=== PATIENT | female | born 1955 ===

== ENCOUNTER 2019-12-17 15:59 | Emergency (ER) | payer MEDICAID ==
--- NOTE | 2019-12-17 16:28 | RAD ---
Chest one view HISTORY: Weakness. FINDINGS: No comparison. Cardiac silhouette is unremarkable. Pulmonary vasculature accentuated by sha llow inspiration spinal is midline allowing for slight leftward rotation of the patient. Calcification over the aortic arch. Slight masslike prominence of the right hilum. Possibly projectional. No lobar consolidation or evidence of pneumothorax. IMPRESSION : Subtle prominence of the right hilum. Further evaluation warranted. Please consider upright PA and lateral views of the chest in full inspiration for better characteriza tion. Atherosclerosis.
[2019-12-17] MEDS ORDERED: Nitroglycerin 2% Ointment 1 INCH/1 GM Packet ONE (16:31)
[2019-12-17 16:57] LABS: #Eosinphils 0.1 thou/uL (0.0-0.7); #Lymphocytes 1.8 thou/uL (1.20-3.40); #Monocytes 0.5 thou/uL (0.11-0.59); #Neutrophils 4.4 thou/uL (1.40-6.50); %Basophils 0.3 % (0.0-1.0); %Eosinophils 1.3 % (0.0-10.0); %Monocytes 7.5 % (0.0-10.0); Hemoglobin 14.5 g/dL (12.0-16.0); Mean Corpuscular HGB CONC 33.8 g/dL (32.0-36.0); Mean Corpuscular Hemoglobin 31.8 pg (27.0-31.0); Mean Corpuscular Volume 93.9 fL (78.0-98.0); Mean Platelet Volume 8.5 fL (7.4-10.4); Platelet Count 175 thou/uL (130-400); RBC Distribution Width 12.4 % (11.5-14.5); Red Blood Cell (RBC) Count 4.55 mill/uL (4.20-5.40); White Blood Cell (WBC) Count 6.8 thou/uL (4.8-10.8)
--- NOTE | 2019-12-17 17:19 | CT ---
CT head noncontrast HISTORY: Syncope. FINDINGS: No comparison. There is no evidence of acute intracranial hemorrhage or infarct. The ventri cles appear normal in size, shape and position. There is no mass effect or shift of midline structures. Visualized paranasal sinuses remain well aerated. IMPRESSION : Normal exam.
[2019-12-17 17:20] LABS: ALT (SGPT) 37 U/L (8-55); AST (SGOT) 28 U/L (5-34); Albumin 4.1 g/dL (3.4-4.8); Alkaline Phosphatase 159 U/L (40-110); Anion Gap 13 mmol/L (10-20); BUN (Urea Nitrogen) 12 mg/dL (9.8-20.1); Bilirubin, Total 1.3 mg/dL (0.2-1.2); CK (CPK) 79 U/L (29-168); Calc. Creatinine Clearance 0 mL/min (70-130); Calcium 9.2 mg/dL (7.8-10.44); Carbon Dioxide 25 mmol/L (23-31); Chloride 102 mmol/L (98-107); Estimated GFR-MDRD 90; Globulin 3.3 g/dL (2.4-3.5); Glucose 144 mg/dL (80-115); Lipase 46 U/L (8-78); Potassium 3.7 mmol/L (3.5-5.1); Protein, Total 7.4 g/dL (6.0-8.3); Sodium 136 mmol/L (136-145)
--- NOTE | 2019-12-17 18:40 | PDOC.EVN ---
Event Note - Event Note Event Note: 64F being admitted for syncope and a week of intermittent chest pain. Patient is burkinan-speaking only. Attempted to get history from patient using an radiophone operator service on an ipad. Patient states she is feeling fine now and does not want to be admitted. Explained why ED physician was concerned due to syncopal event and chest pain and need for further testing. Patient refused and also refused the CT scan which Dr. Rodriguez had ordered. Patient states she feels fine and wants to go home. Explained again the potential seriousness of a syncope event and worry for her safety. She still insisted on going home. Explained she would have to sign out AMA and she was okay with this. Precautions given for return to ED and to see her PCP this week. Dr. Rodriguez ( ED physician) updated on plan for dispo for AMA.
--- NOTE | 2019-12-23 13:30 | EKG ---
Test Reason : CHEST PAIN Blood Pressure : / mmHG Vent. Rate : 085 BPM Atrial Rate : 085 BPM P-R Int : 144 ms QRS Dur : 074 ms QT Int : 372 ms P-R-T Axes : 036 026 020 degrees QTc Int : 442 ms Normal sinus rhythm Q waves in III only Abnormal ECG Confirmed by LES CASTANON DO ([id number]), assignment editor RICARDO DESAI ([id number]) on 12/23/2019 1:29:52 PM Referred By: ETELVINA CASTANON Confirmed By:LES CASTANON DO
== END 2019-12-17 18:30 | disposition left against medical advice (07) ==
LOC: ERS 15:59
DX: R07.9 Chest pain, unspecified (principal); R55 Syncope and collapse; R06.00 Dyspnea, unspecified
CPT/HCPCS: 36415; 70450; 71045; 80053; 82550; 83690; 84484; 85025; 85379; 93005